=== PATIENT | female | born 1990 | race Hispanic/Latino ===

== ENCOUNTER 2016-12-23 21:00 | Inpatient (IN) | payer BC ==
[2016-12-23] MEDS ORDERED: LACTATED RINGERS 1,000 ML ONE (23:34)
[2016-12-23] MEDS ORDERED: PITOCin/NS 30 UNIT/500ML 30 UNITS/500 ML BAG IV SCH ×2 (23:45)
[2016-12-23] MEDS ORDERED: PITOCin/NS 20 UNIT/1000ML DRIP 20 UNITS/1,000 ML BAG IV SCH (23:45)
[2016-12-23] MEDS ORDERED: MINERAL OIL PO PRN (23:46)
[2016-12-23] MEDS ORDERED: STADOL IV PRN (23:46)
[2016-12-23] MEDS ORDERED: BRETHINE IVP PRN (23:46)
[2016-12-23] MEDS ORDERED: BRETHINE SUB-Q PRN (23:46)
[2016-12-23] MEDS ORDERED: ePHEDrine SULFATE IV PRN (23:46)
[2016-12-23] MEDS ORDERED: POLYCILLIN/NS 2 GM/100 ML 2 GM/100 ML BAG IV ONE (23:46)
[2016-12-23] MEDS ORDERED: XYLOCAINE 2% INFILTRATI ONE (23:46)
[2016-12-23] MEDS ORDERED: SUBLIMAZE IV PRN (23:46)
[2016-12-24] MEDS: LACTATED RINGERS 1,000 ML IV SCH ×4 (00:02→09:19)
[2016-12-24 00:11] LABS: Hematocrit 32.8 % (30.3-42.9); Hemoglobin 10.6 gm/dl (10.1-14.3)
[2016-12-24] MEDS ORDERED: ePHEDrine SULFATE ONE (01:35)
[2016-12-24] MEDS ORDERED: NARCAN 2 MG/2 ML IV PRN (02:16)
[2016-12-24] MEDS ORDERED: ePHEDrine SULFATE IV PRN (02:16)
--- NOTE | 2016-12-24 02:16 | Anesthesia Consultation ---
Anesthesia Consult and Med Hx Date of service: 12/24/16 - Airway Anesthetic Teeth Evaluation: Good ROM Head & Neck: Adequate Mental/Hyoid Distance: Adequate Mallampati Class: Class II Intubation Access Assessment: Probably Good - Pulmonary Exam CTA: Yes - Cardiac Exam Cardiac Exam: RRR - Pre-Operative Health Status ASA Pre-Surgery Classification: ASA2 Proposed Anesthetic Plan: Epidural - Pulmonary Hx Asthma: No COPD: No Hx Pneumonia: No - Cardiovascular System Hx Hypertension: No - Central Nervous System Hx Seizures: No Hx Psychiatric Problems: No - Endocrine Hx Renal Disease: No Hx End Stage Renal Disease: No Hx Hypothyroidism: No Hx Hyperthyroidism: No - Hematic Hx Anemia: Yes Hx Sickle Cell Disease: No - Other Systems Hx Alcohol Use: No
[2016-12-24] MEDS: fentaNYL-BUPIV 2 MCG/ML-0.125% 200 MCG/100 ML BAG EPIDURAL SCH ×2 (02:29→09:53)
[2016-12-24] MEDS: POLYCILLIN/NS 1 GM/50 ML 1 GM/50 ML BAG IV SCH ×2 (04:33→09:00)
--- NOTE | 2016-12-24 08:33 | History and Physical Report ---
History of Present Illness Date of examination: 12/24/16 Date of admission: 12/23/16 23:32 Chief complaint: contractions History of present illness: This is a 26 yo at 38+ weeks c/o contractions admitted for labor. She is a patient of [facility] with transfer of care at 29 weeks. Her problem list include 1. Hydronephrosis ecogenic foci resolved 2. GBS + 3. chronic anemia Past History Past Medical History: no pertinent history Past Surgical History: no surgical history Family/Genetic History: heart disease, hypertension Social history: no significant social history. denies: smoking, alcohol abuse, prescription drug abuse - Obstetrical History Expected Date of Delivery: 01/03/17 Actual Gestation: 38 Week(s) 4 Day(s) : 2 Para: 0 Hx # Term Pregnancies: 0 Number of Pregnancies: 0 Spontaneous Abortions: 0 Induced : 1 Number of Living Children: 0 Medications and Allergies Allergies Allergy/AdvReac Type Severity Reaction Status Date / Time No Known Allergies Allergy Unverified 12/23/16 21:53 Home Medications Medication Instructions Recorded Confirmed Last Taken Type Ferrous Sulfate [Feosol] 325 mg PO BID 12/24/16 12/24/16 12/23/16 History Vit-Fe Fumar-FA [ 1 tab PO QDAY 12/24/16 12/24/16 12/23/16 History Vitamin] Active Meds: Active Medications Butorphanol Tartrate (Stadol) 2 mg IV Q2H PRN PRN Reason: Pain , Severe (7-10) Last Admin: 12/24/16 00:18 Dose: 2 mg Fentanyl (Sublimaze) 100 mcg IV Q2H PRN PRN Reason: Labor Pain Lactated Ringer's (Lactated Ringers) 1,000 mls @ 125 mls/hr IV DIRECT JOSELIN Last Admin: 12/24/16 02:34 Dose: 125 mls/hr Oxytocin/Sodium Chloride (Pitocin/Ns 20 Unit/1000ml Drip) 20 units in 1,000 mls @ 125 mls/hr IV DIRECT JOSELIN Oxytocin/Sodium Chloride (Pitocin/Ns 30 Unit/500ml) 30 units in 500 mls @ 4 mls /hr IV TITR JOSELIN PRN Reason: Protocol Last Titration: 12/24/16 08:13 Dose: 16 mls/hr, 16 mls/hr Oxytocin/Sodium Chloride (Pitocin/Ns 30 Unit/500ml) 30 units in 500 mls @ 1 mls /hr IV TITR JOSELIN; 1 MILLIUNITS/MIN PRN Reason: Protocol Ampicillin Sodium (Polycillin/Ns 1 Gm/50 Ml) 1 gm in 50 mls @ 100 mls/hr IV Q4HR JOSELIN PRN Reason: Protocol Last Admin: 12/24/16 04:33 Dose: 100 mls/hr Fentanyl/Bupivacaine/Sodium Chlor (Fentanyl-Bupiv 2 Mcg/Ml-0.125%) 200 mcg in 100 mls @ 12 mls/hr EPIDURAL TITR JOSELIN PRN Reason: Protocol Last Admin: 12/24/16 02:29 Dose: 12 mls/hr Mineral Oil (Mineral Oil) 30 ml PO QHS PRN PRN Reason: Constipation Review of Systems All systems: negative Genitourinary: contractions - Vital Signs Vital signs: Vital Signs Temp Resp 98.4 F 18 12/23/16 21:48 12/23/16 21:48 Temp Pulse Resp BP Pulse Ox 98.8 F 88 18 135/68 95 12/24/16 07:20 12/24/16 08:25 12/24/16 07:20 12/24/16 08:19 12/24/16 08:25 - Physical Exam Breasts: Positive: normal Cardiovascular: Regular rate, Normal S1 Lungs: Positive: Clear to auscultation, Normal air movement Abdomen: Positive: normal appearance, soft, normal bowel sounds. Negative: distention, tenderness Genitourinary (Female): Positive: normal external genitalia, normal perenium Vulva: both: normal Uterus: Positive: normal size, normal contour Anus/Rectum: Positive: normal perianal skin Extremities: Positive: normal Deep Tendon Reflex Grade: Normal +2 - Obstetrical FHR: category 1 Uterine Contraction Monitor Mode: External Cervical Dilatation: 6 Uterine Contraction Pattern: Regular Uterine Tone Measurement Phase: Contraction Uterine Contraction Intensity: Moderate Results Result Diagrams: 12/24/16 01:40 All other labs normal. Assessment and Plan A/P IUP 38 + weeks GBS + amp initiated active labor expect vaginal delivery
[2016-12-24] MEDS ORDERED: XYLOCAINE 2% INFILTRATI ONE (11:09)
[2016-12-24] MEDS ORDERED: CYTOTEC ONE (11:12)
[2016-12-24] MEDS ORDERED: LANSINOH TP PRN (12:33)
[2016-12-24] MEDS ORDERED: TYLENOL PO PRN (12:33)
[2016-12-24] MEDS ORDERED: PHENERGAN PO PRN (12:33)
[2016-12-24] MEDS ORDERED: NORCO 5/325 PO PRN (12:33)
[2016-12-24] MEDS ORDERED: TORADOL IV PRN (12:33)
[2016-12-24] MEDS ORDERED: DULCOLAX PR PRN (12:33)
[2016-12-24] MEDS ORDERED: MILK OF MAGNESIA PO PRN (12:33)
[2016-12-24] MEDS ORDERED: PHENERGAN PR PRN (12:33)
[2016-12-24] MEDS ORDERED: TUCKS PAD TP PRN (12:33)
[2016-12-24] MEDS ORDERED: ZOFRAN IV PRN (12:33)
[2016-12-24] MEDS ORDERED: BENADRYL PO PRN (12:33)
[2016-12-24] MEDS ORDERED: SODIUM CHLORIDE FLUSH SYRINGE 10 ML IV NR (13:00)
--- NOTE | 2016-12-24 13:00 | Procedure Note ---
OB Delivery Note - Delivery Date of Delivery: 12/24/16 Surgeon: ELVIS BUSTOS Estimated blood loss: 500cc - Vaginal Delivery presentation: vertex Delivery position: OA Delivery induction: none Delivery augmentation: pitocin Delivery monitor: external FHT, external uterine Route of delivery: Delivery placenta: spontaneous Delivery cord: nuchal cord, 3 umbilical vessels Episiotomy: none Delivery laceration: 2nd degree, vaginal side wall (left) Delivery repair: vicryl Delivery comments: Patient was noted to be c/c/ and pushing and delivered a viable female at 1109 weighting 8 pounds 4 ounces Apgars 8 and 9. The baby was placed on mom chest and cord reduced from nuchal cord. The cord was cut and clamped and placentat delivered intact with 3 vessel cord at 1111. A 2nd degree lac noted and repaired in normal way with 2-0vicryl. a 3-0 vicryl repaired with running stitch on side wall. EBL 500cc. patient tolerated procedure well. - Infant A at 1 minute: 8 at 5 minutes: 9 Infant Gender: Female
[2016-12-24] MEDS: MOTRIN PO SCH ×2 (13:48→18:13)
[2016-12-24] MEDS: PRENATAL VITAMIN PO SCH (13:49)
[2016-12-24] MEDS: SENOKOT S PO SCH (21:53)
[2016-12-24] MEDS: COLACE PO SCH (21:54)
[2016-12-24] MEDS: PERCOCET 5/325 PO PRN (23:44)
[2016-12-25 00:58] LABS: Hematocrit 25.7 % (30.3-42.9); Hemoglobin 8.4 gm/dl (10.1-14.3)
[2016-12-25] MEDS: MOTRIN PO SCH ×4 (01:09→18:32)
[2016-12-25] MEDS: PERCOCET 5/325 PO PRN ×2 (06:04→18:35)
--- NOTE | 2016-12-25 06:38 | Progress Note ---
Assessment and Plan A/P PPD#1 s/p Doing well bleeding decreased pain well controlled continue routine PP desires minipill for control h/h 10.6---8.4 iron tabs bid A+ no rhogam indicated continue routine PP order D/C home tomorrow ( GBS+ -gely 48 hr observation) Subjective - Subjective Date of service: 12/25/16 Principal diagnosis: s/p Interval history: This is a 26 yo at 38+ weeks c/o contractions admitted for labor. She is a patient of [facility] with transfer of care at 29 weeks. Her problem list include 1. Hydronephrosis ecogenic foci resolved 2. GBS + 3. chronic anemia Patient reports: appetite normal, voiding normally, pain well controlled, flatus , ambulating normally [place]: doing well, nursing well Objective - Vital Signs Latest vital signs: Vital Signs Temp Pulse Pulse Resp BP BP Pulse Ox 12/25/16 06:04 20 12/25/16 00:00 99 F 65 16 121/66 12/24/16 23:44 20 12/24/16 20:00 98.7 F 74 18 108/55 12/24/16 16:50 98.8 F 84 18 117/62 12/24/16 13:45 98.1 F 86 20 110/70 12/24/16 13:18 90 111/75 12/24/16 13:03 100 H 116/81 12/24/16 12:48 99 H 115/78 12/24/16 12:34 89 113/59 12/24/16 12:18 89 118/58 12/24/16 12:14 91 H 97 12/24/16 12:08 79 95 12/24/16 12:03 88 123/59 12/24/16 11:33 95 H 127/62 12/24/16 11:18 88 140/60 12/24/16 11:13 99.0 F 96 H 18 132/57 96 12/24/16 11:11 88 132/57 96 12/24/16 11:04 82 122/63 12/24/16 10:55 89 99 12/24/16 10:50 90 98 12/24/16 10:48 72 122/59 12/24/16 10:45 77 99 12/24/16 10:40 74 98 07/14/17 10:35 81 97 14/17 10:34 77 122/59 0714/17 10:30 72 98 0714/17 10:25 79 98 14/17 10:20 81 97 14/17 10:19 76 106/56 14/17 10:15 85 97 14/17 10:10 78 96 14/17 10:05 80 114/55 98 14/17 10:00 89 97 14/17 09:55 75 97 14/17 09:50 78 97 14/17 09:49 83 101/52 14/17 09:45 74 99 14/17 09:40 77 110/56 98 14/17 09:35 80 98 14/17 09:33 76 92/45 14/17 09:30 87 96 14/17 09:25 81 97 14/17 09:22 98.5 F 82 18 97/53 96 17 09:20 84 95 1417 09:18 78 97/53 14/17 09:15 86 95 1417 09:10 80 96 14/17 09:05 82 95 12/24/17 09:03 73 97/55 17 09:00 86 94 1417 08:58 80 94 14/17 08:55 84 95 12/24/17 08:50 76 95 14/17 08:49 89 94 14/17 08:48 85 123/63 14/17 08:45 80 95 1417 08:40 86 95 14/17 08:35 91 H 95 14/17 08:33 78 94 14/17 08:30 85 94 14/17 08:27 86 94 14/17 08:25 88 95 14/17 08:20 84 96 14/17 08:19 87 135/68 14/17 08:15 87 96 1417 08:10 84 96 14/17 08:05 79 98 14/17 08:04 75 126/71 14/17 08:00 83 96 14/17 07:55 90 97 12/24/16 07:50 83 97 12/24/16 07:49 76 123/66 12/24/16 07:45 81 97 12/24/16 07:40 83 97 12/24/16 07:35 92 H 97 12/24/16 07:33 85 124/73 12/24/16 07:30 80 98 12/24/16 07:25 80 98 12/24/16 07:20 98.8 F 83 83 18 131/81 99 12/24/16 07:19 78 131/81 12/24/16 07:15 80 99 12/24/16 07:10 88 100 12/24/16 07:05 81 99 12/24/16 07:04 84 119/79 12/24/16 07:00 77 99 12/24/16 06:55 74 100 12/24/16 06:50 101 H 96/59 98 12/24/16 06:45 70 99 12/24/16 06:40 71 99 12/24/16 06:35 73 99 Intake and Output 12/24/16 12/24/16 12/25/16 14:59 22:59 06:59 Intake Total 1000 360 Output Total 2200 1100 Balance -1200 -740 Intake: IV 1000 Lactated Ringers 1,000 ml 1000 @ 125 mls/hr IV DIRECT JOSELIN Rx#:[id number] Oral 360 Output: Urine 2200 1100 Indwelling Catheter 1100 Uretheral ([place]div[place]) 1100 Void 1100 Other: Total, Intake Amount 240 Total, Output Amount 1100 600 Estimated Blood Loss 500 - Exam Breasts: Present: normal Cardiovascular: Present: Regular rate, Normal S1 Lungs: Present: Clear to auscultation, Normal air movement Abdomen: Present: normal appearance, soft, normal bowel sounds. Absent: distention, tenderness, guarding Vulva: both: normal Uterus: Present: normal, firm, fundal height below umbilicus (2cm below ). Absent: bogginess, tenderness Extremities: Present: normal Deep Tendon Reflex Grade: Normal +2 - Labs Labs: Abnormal lab results 12/25/16 Range/Units 00:13 Hgb 8.4 L (10.1-14.3) gm/dl Hct 25.7 L D (30.3-42.9) %
--- NOTE | 2016-12-25 06:40 | Discharge Summary ---
Providers - Providers Date of Admission: 12/23/16 23:32 Date of discharge: 12/26/16 Attending physician: ELVIS BUSTOS MD Primary care physician: ELVIS BUSTOS MD Hospitalization Reason for admission: active labor Delivery: Episiotomy: none Laceration: 2nd degree Incision: normal, dry, intact Other procedures: none complications: none Discharge diagnosis: IUP at term delivered baby: female Condition at discharge: Good Disposition: DC-01 TO HOME OR SELFCARE Plan - Discharge Medications Prescriptions: Ferrous Sulfate [Feosol 325 MG tab] 325 mg PO BID #30 tablet Ibuprofen [Motrin] 600 mg PO Q8H PRN #30 tablet PRN Reason: Pain oxyCODONE /ACETAMINOPHEN [Percocet 5/325] 1 tab PO Q6HR PRN #30 tablet PRN Reason: Pain - Provider Discharge Summary Additional instructions: [] Smoking cessation referral if applicable(refer to patient education folder for contact #) [] Refer to [facility]'s [facility] Booklet Call your doctor immediately for: * Fever > 100.5 * Heavy vaginal bleeding ( >1 pad per hour) * Severe persistent headache * Shortness of breath * Reddened, hot, painful area to leg or breast * Drainage or odor from incision. * Keep incision clean and dry at all times and follow doctor's instructions regarding bathing/showering - Follow up plan Follow up: ELVIS BUSTOS MD [Primary Care Provider] - 7 Days
--- NOTE | 2016-12-25 10:22 | Progress Note ---
Subjective Date of service: 12/25/16 Principal diagnosis: s/p Interval history: Epidural is out. No anesthetic related complaints Objective - Constitutional Vitals: Vital Signs - 12hr 12/24/16 12/25/16 12/25/16 23:44 00:00 06:04 Temperature 99 F Pulse Rate [ 65 From Monitor] Respiratory 20 16 20 Rate Blood Pressure 121/66 [Right Arm] 12/25/16 08:41 Temperature 98.2 F Pulse Rate [ 66 From Monitor] Respiratory 18 Rate Blood Pressure 108/69 [Right Arm] - Labs CBC & Chem 7: 12/25/16 00:13 Labs: Abnormal lab results 12/25/16 Range/Units 00:13 Hgb 8.4 L (10.1-14.3) gm/dl Hct 25.7 L D (30.3-42.9) %
[2016-12-25] MEDS ORDERED: BOOSTRIX IM ONE (12:33)
[2016-12-25] MEDS ORDERED: M-M-R II VACCINE SUB-Q ONE (12:33)
[2016-12-25] MEDS: PRENATAL VITAMIN PO SCH (12:34)
[2016-12-25] MEDS: COLACE PO SCH (12:34)
[2016-12-26] MEDS: COLACE PO SCH ×2 (00:18→11:40)
[2016-12-26] MEDS: MOTRIN PO SCH ×4 (00:18→20:57)
[2016-12-26] MEDS: SENOKOT S PO SCH (00:19)
[2016-12-26] MEDS: PERCOCET 5/325 PO PRN ×2 (02:02→20:58)
[2016-12-26] MEDS: PRENATAL VITAMIN PO SCH (11:40)
[2016-12-26 18:17] VITALS: BP 143/74
== END 2016-12-26 21:20 | disposition home or self-care (01) | DRG 774 ==
LOC: TRG 21:00 → LD 23:32 → OB 12-24 13:45
PROVIDERS: ADMIT Obstetrics & Gynecology; ATTEND Obstetrics & Gynecology
PROC: 10E0XZZ Delivery of Products of Conception, External Approach (ICD-10-PCS; principal; 2016-12-24)
PROC: 0KQM0ZZ Repair Perineum Muscle, Open Approach (ICD-10-PCS; 2016-12-24)
PROC: 3E0234Z Introduction of Serum, Toxoid and Vaccine into Muscle, Percutaneous Approach (ICD-10-PCS; 2016-12-25)
DX: O99.824 Streptococcus B carrier state complicating childbirth (principal); O98.82 Other maternal infectious and parasitic diseases complicating childbirth; N13.30 Unspecified hydronephrosis; O99.02 Anemia complicating childbirth; D64.9 Anemia, unspecified; Z3A.38 38 weeks gestation of pregnancy; Z37.0 Single live birth; Z23 Encounter for immunization; O69.81X0 Labor and delivery complicated by cord around neck, without compression, not applicable or unspecified; O70.1 Second degree perineal laceration during delivery
CPT/HCPCS: 36415; 85014; 85018; 85027; 85049; 86592; 86850; 86900; 86901; 99211; G0463; J0290; J0595; J2590; J7120

== ENCOUNTER 2020-01-09 23:38 | Emergency (ER) | payer BC ==
--- NOTE | 2020-01-10 00:02 | Emergency Department Report ---
ED General Adult HPI - General Chief complaint: Dyspnea/Respdistress Stated complaint: SHORTNESS OF BREATH PUI?: Yes Time Seen by Provider: 01/09/20 23:56 Source: patient Mode of arrival: Ambulatory Limitations: No Limitations - History of Present Illness Initial comments: Patient is a 29-year-old female that presents emergency room with complaints of upper respiratory infection symptoms and shortness of breath. Patient states that approximately 9 days ago, the patient had fever that lasted for 3 days. Patient states her fever was 100.5-100.9. Patient states after 3 days her fever resolved. Patient states she had diarrhea for 1 day. Patient states 6 days ago she tested for COVID-19 and it was negative. Patient states that her shortness of breath started 2 to 3 days ago. Patient states that her shortness of breath is better with rest and worse with exertion. Patient complains of loss of smell and a mild cough. Patient states her cough has resolved. Patient states her loss of smell has resolved. Patient states she also had a runny nose which is resolved. Patient denies nausea vomiting. Patient denies chest pain. Patient states her cough was dry. Patient states her last menstrual period was 1 week a go. Patient denies recent fever. Patient states she came to the emergency room to be evaluated for pneumonia. -: Sudden Consistency: constant Improves with: rest Worsens with: movement Associated Symptoms: cough, fever/chills, malaise, shortness of breath, other. denies: confusion, chest pain, diaphoresis, headaches, loss of appetite, nausea/vomiting, rash, seizure, syncope, weakness Treatments Prior to Arrival: other (Tylenol) - Related Data Home Medications Medication Instructions Recorded Confirmed Last Taken Ferrous Sulfate [Feosol] 325 mg PO BID 12/24/16 12/24/16 12/23/16 Vit-Fe Fumar-FA [ 1 tab PO QDAY 12/24/16 12/24/16 12/23/16 Vitamin] Previous Rx's Medication Instructions Recorded Last Taken Type Ferrous Sulfate [Feosol 325 MG tab] 325 mg PO BID #30 tablet 12/25/16 Unknown Rx Ibuprofen [Motrin] 600 mg PO Q8H PRN #30 tablet 12/25/16 Unknown Rx oxyCODONE /ACETAMINOPHEN [Percocet 1 tab PO Q6HR PRN #30 tablet 12/25/16 Unknown Rx 5/325] Azithromycin [Zithromax Tri-Deon] 500 mg PO DAILY 3 Days #3 tablet 01/10/20 Unknown Rx dexAMETHasone [Taperdex] 1.5 mg PO DAILY 7 Days #1 tab.ds.pk 01/10/20 Unknown Rx Allergies Allergy/AdvReac Type Severity Reaction Status Date / Time No Known Allergies Allergy Unverified 12/23/16 21:53 ED Review of Systems ROS: Stated complaint: SHORTNESS OF BREATH Other details as noted in HPI Constitutional: chills, fever, malaise Eyes: denies: eye pain, eye discharge, vision change ENT: denies: ear pain, throat pain Respiratory: cough, shortness of breath, SOB with exertion. denies: wheezing Cardiovascular: denies: chest pain, palpitations Endocrine: no symptoms reported Gastrointestinal: diarrhea. denies: abdominal pain, nausea, vomiting Genitourinary: denies: urgency, dysuria, discharge Musculoskeletal: denies: back pain, joint swelling, arthralgia Skin: denies: rash, lesions Neurological: denies: headache, weakness, paresthesias Psychiatric: denies: anxiety, depression Hematological/Lymphatic: denies: easy bleeding, easy bruising ED Past Medical Hx - Past Medical History Previous Medical History?: No Hx Hypertension: No Hx Congestive Heart Failure: No Hx Diabetes: No Hx Deep Vein Thrombosis: No Hx Renal Disease: No Hx Sickle Cell Disease: No Hx Seizures: No Hx Asthma: No Hx COPD: No Hx HIV: No - Surgical History Past Surgical History?: Yes - Family History Family history: no significant - Social History Smoking Status: Never Smoker Substance Use Type: None - Medications Home Medications: Home Medications Medication Instructions Recorded Confirmed Last Taken Type Ferrous Sulfate [Feosol] 325 mg PO BID 12/24/16 12/24/16 12/23/16 History Vit-Fe Fumar-FA [ 1 tab PO QDAY 12/24/16 12/24/16 12/23/16 History Vitamin] Ferrous Sulfate [Feosol 325 MG tab] 325 mg PO BID #30 tablet 12/25/16 Unknown Rx Ibuprofen [Motrin] 600 mg PO Q8H PRN #30 tablet 12/25/16 Unknown Rx oxyCODONE /ACETAMINOPHEN [Percocet 1 tab PO Q6HR PRN #30 tablet 12/25/16 Unknown Rx 5/325] Azithromycin [Zithromax Tri-Deon] 500 mg PO DAILY 3 Days #3 tablet 01/10/20 Unknown Rx dexAMETHasone [Taperdex] 1.5 mg PO DAILY 7 Days #1 tab.ds.pk 01/10/20 Unknown Rx ED Physical Exam - General Limitations: No Limitations General appearance: alert, in no apparent distress - Head Head exam: Present: atraumatic, normocephalic - Eye Eye exam: Present: normal appearance - ENT ENT exam: Present: mucous membranes moist - Neck Neck exam: Present: normal inspection - Respiratory Respiratory exam: Present: normal lung sounds bilaterally. Absent: respiratory distress, wheezes, rales - Cardiovascular Cardiovascular Exam: Present: regular rate, normal rhythm. Absent: systolic murmur, diastolic murmur, rubs, gallop - GI/Abdominal GI/Abdominal exam: Present: soft, normal bowel sounds - Extremities Exam Extremities exam: Present: normal inspection - Back Exam Back exam: Present: normal inspection - Neurological Exam Neurological exam: Present: alert, oriented X3 - Psychiatric Psychiatric exam: Present: normal affect, normal mood - Skin Skin exam: Present: warm, dry, intact, normal color. Absent: rash ED Course Vital Signs 01/10/20 01:40 Temperature 98.7 F Pulse Rate 80 Respiratory 16 Rate Blood Pressure 121/68 O2 Sat by Pulse 97 Oximetry - Reevaluation(s) Reevaluation #1: I discussed all results and clinical findings with patient. I discussed plan of care with patient. Patient agrees with plan of care. Patient is stable for discharge. Patient will be discharged home. Patient given discharge instructions. Patient voiced understanding of discharge instructions. 01/10/20 01:51 ED Medical Decision Making - Lab Data Result diagrams: 01/10/20 00:08 01/10/20 00:08 - Radiology Data Radiology results: report reviewed CHEST 2 VIEWS INDICATION / CLINICAL INFORMATION: cough. COMPARISON: None available. FINDINGS: SUPPORT DEVICES: None. HEART / MEDIASTINUM: No significant abnormality. LUNGS / PLEURA: No significant pulmonary or pleural abnormality. No pneumothorax. ADDITIONAL FINDINGS: No significant additional findings. IMPRESSION: 1. No acute abnormality of the chest. - Medical Decision Making Patient is a 29-year-old female that presents emergency room with complaints of upper respiratory symptoms. Patient had a chest x-ray which was negative. Patient's labs are unremarkable. Patient already had a negative COVID test. Patient does not require quarantining since her culture was negative. I will have the patient repeat her COVID-19 test just to be on the safe side. Patient will be given Zithromax and a TaperDex. - Differential Diagnosis COVID, URI, fatigue, fever, cough,sob. pna Critical care attestation.: If time is entered above; I have spent that time in minutes in the direct care of this critically ill patient, excluding procedure time. ED Disposition Clinical Impression: Suspected COVID-19 virus infection, SOB (shortness of breath), Cough URI (upper respiratory infection) Qualifiers: URI type: unspecified viral URI Qualified Code(s): J06.9 - Acute upper respiratory infection, unspecified Disposition: TO HOME OR SELFCARE Is pt being admited?: No Does the pt Need Aspirin: No Condition: Stable Instructions: COVID-19, Upper Respiratory Infection (ED) Additional Instructions: Patient to follow-up with primary care in 2 to 3 days. Patient to repeat COVID testing if fever returns. Patient to rest. Patient to increase water. Patient to take Tylenol as needed for pain. Patient to take meds as directed. Patient to return to the ER if condition worsens, changes or new symptoms arise. Prescriptions: dexAMETHasone [Taperdex] 1.5 mg PO DAILY 7 Days #1 tab.ds.pk Azithromycin [Zithromax Tri-Deon] 500 mg PO DAILY 3 Days #3 tablet Referrals: PRIMARY CARE, [Primary Care Provider] - 2-3 Days Time of Disposition: 01:50
[2020-01-10 00:47] LABS: Hematocrit 40.9 % (30.3-42.9); Hemoglobin 13.8 gm/dl (10.1-14.3); Mean Corpuscular HGB Conc 34 % (30-34); Mean Corpuscular Volume 94 fl (79-97); Platelet Count 223 K/mm3 (140-440); Red Blood Count 4.34 M/mm3 (3.65-5.03); Red Cell Distribution Width 12.4 % (13.2-15.2)
--- NOTE | 2020-01-10 01:04 | XRay Report ---
CHEST 2 VIEWS INDICATION / CLINICAL INFORMATION: cough. COMPARISON: None available. FINDINGS: SUPPORT DEVICES: None. HEART / MEDIASTINUM: No significant abnormality. LUNGS / PLEURA: No significant pulmonary or pleural abnormality. No pneumothorax. ADDITIONAL FINDINGS: No significant additional findings. IMPRESSION: 1. No acute abnormality of the chest. Signer Name: Pillo Banuelos MD Signed: 01/10/2020 1:00 AM Workstation Name: [id number]
[2020-01-10 01:07] LABS: Alanine Aminotransferase 13 units/L (7-56); Albumin 4.7 g/dL (3.9-5); BUN/Creatinine Ratio 15; Blood Urea Nitrogen 12 mg/dL (7-17); Calcium 9.8 mg/dL (8.4-10.2); Hemolysis Index 5
[2020-01-10 01:43] VITALS: BP 121/68
== END 2020-01-10 02:11 | disposition home or self-care (01) ==
LOC: ED 23:38
DX: J06.9 Acute upper respiratory infection, unspecified (principal); Z20.828 Contact with and (suspected) exposure to other viral communicable diseases; R06.02 Shortness of breath; R05 Cough; Z79.1 Long term (current) use of non-steroidal anti-inflammatories (NSAID); Z79.2 Long term (current) use of antibiotics; Z79.899 Other long term (current) drug therapy
CPT/HCPCS: 36415; 71046; 80053; 84703; 85027

== ENCOUNTER 2020-11-23 04:31 | Emergency (ER) | payer BC ==
[2020-11-23] MEDS ORDERED: HYDROmorphone 1 MG/1 ML INJ IV ONE ×2 (04:38→06:36)
[2020-11-23] MEDS ORDERED: SODIUM CHLORIDE 0.9% 1000 ML 1,000 ML IV ONE (04:38)
[2020-11-23] MEDS ORDERED: ONDANSETRON 4 MG/2 ML INJ IV ONE ×2 (04:38→06:36)
--- NOTE | 2020-11-23 04:39 | Emergency Department Report ---
ED Abdominal Pain HPI - General Chief Complaint: Abdominal Pain Stated Complaint: PELVIC PAIN/VAGINAL BLEEDING X5WKS PUI?: No Time Seen by Provider: 11/23/20 04:36 Source: patient, RN/MD, RN notes reviewed, old records reviewed Mode of arrival: Ambulatory Limitations: No Limitations - History of Present Illness Initial Comments: Patient is a 30-year-old female that presents emergency room with complaints of right lower quadrant abdominal pain. Patient states she is also been having abnormal cycles. Patient states she came off control about 5 weeks ago and she has been bleeding since. Patient states that she took a test today it came up positive. Patient states the pain is severe 10 out of 10. Patient states the pain improved with ibuprofen. Patient denies chest pain. Patient denies nausea vomiting. Patient denies shortness of breath. Patient denies recent travel. Patient denies recent international travel. Patient denies exposure to the novel coronavirus. Patient denies sick contacts. Patient denies fever and chills. Patient denies cough. Patient denies diarrhea. Patient denies coming in contact with anybody with symptoms of the novel coronavirus. Patient's blood type is A positive. Patient is a G2, MD Complaint: abdominal pain -: Sudden Location: RLQ Radiation: none Migration to: no migration Severity: severe Severity scale (0 -10): 10 Quality: stabbing Improves With: medication (Ibuprofen), rest Worsens With: movement Associated Symptoms: denies other symptoms - Related Data Home Medications Medication Instructions Recorded Confirmed Last Taken Ferrous Sulfate [Feosol] 325 mg PO BID 12/24/16 12/24/16 12/23/16 Previous Rx's Medication Instructions Recorded Last Taken Type Ferrous Sulfate [Feosol 325 MG tab] 325 mg PO BID #30 tablet 12/25/16 Unknown Rx Ibuprofen [Motrin] 600 mg PO Q8H PRN #30 tablet 12/25/16 Unknown Rx Azithromycin [Zithromax Tri-Deon] 500 mg PO DAILY 3 Days #3 tablet 01/10/20 Unknown Rx dexAMETHasone [Taperdex] 1.5 mg PO DAILY 7 Days #1 tab.ds.pk 01/10/20 Unknown Rx Ondansetron [Zofran Odt] 4 mg PO Q6HR PRN #30 tab.rapdis 11/23/20 Unknown Rx Vit-Fe Fumar-FA [ 1 tab PO QDAY 30 Days #30 tab 11/23/20 Unknown Rx Vitamin] oxyCODONE /ACETAMINOPHEN [Percocet 1 tab PO Q6HR PRN #15 tablet 11/23/20 Unknown Rx 5/325 mg] Allergies Allergy/AdvReac Type Severity Reaction Status Date / Time No Known Allergies Allergy Verified 11/23/20 04:52 ED Review of Systems ROS: Stated complaint: PELVIC PAIN/VAGINAL BLEEDING X5WKS Other details as noted in HPI Constitutional: denies: chills, fever Eyes: denies: eye pain, eye discharge, vision change ENT: denies: ear pain, throat pain Respiratory: denies: cough, shortness of breath, wheezing Cardiovascular: denies: chest pain, palpitations Endocrine: no symptoms reported Gastrointestinal: as per HPI, abdominal pain. denies: nausea, diarrhea Genitourinary: denies: urgency, dysuria, discharge Musculoskeletal: denies: back pain, joint swelling, arthralgia Skin: denies: rash, lesions Neurological: denies: headache, weakness, paresthesias Psychiatric: denies: anxiety, depression Hematological/Lymphatic: denies: easy bleeding, easy bruising ED Past Medical Hx - Past Medical History Previous Medical History?: No Hx Hypertension: No Hx Congestive Heart Failure: No Hx Diabetes: No Hx Deep Vein Thrombosis: No Hx Renal Disease: No Hx Sickle Cell Disease: No Hx Seizures: No Hx Asthma: No Hx COPD: No Hx HIV: No - Surgical History Past Surgical History?: No - Family History Family history: no significant - Social History Smoking Status: Never Smoker Substance Use Type: None - Medications Home Medications: Home Medications Medication Instructions Recorded Confirmed Last Taken Type Ferrous Sulfate [Feosol] 325 mg PO BID 12/24/16 12/24/16 12/23/16 History Ferrous Sulfate [Feosol 325 MG tab] 325 mg PO BID #30 tablet 12/25/16 Unknown Rx Ibuprofen [Motrin] 600 mg PO Q8H PRN #30 tablet 12/25/16 Unknown Rx Azithromycin [Zithromax Tri-Deon] 500 mg PO DAILY 3 Days #3 tablet 01/10/20 Unk nown Rx dexAMETHasone [Taperdex] 1.5 mg PO DAILY 7 Days #1 tab.ds.pk 01/10/20 Unknown Rx Ondansetron [Zofran Odt] 4 mg PO Q6HR PRN #30 tab.rapdis 11/23/20 Unknown Rx Vit-Fe Fumar-FA [ 1 tab PO QDAY 30 Days #30 tab 11/23/20 Unknown Rx Vitamin] oxyCODONE /ACETAMINOPHEN [Percocet 1 tab PO Q6HR PRN #15 tablet 11/23/20 Unknown Rx 5/325 mg] ED Physical Exam - General Limitations: No Limitations General appearance: alert, in no apparent distress - Head Head exam: Present: atraumatic, normocephalic - Eye Eye exam: Present: normal appearance - ENT ENT exam: Present: mucous membranes moist - Neck Neck exam: Present: normal inspection - Respiratory Respiratory exam: Present: normal lung sounds bilaterally. Absent: respiratory distress - Cardiovascular Cardiovascular Exam: Present: regular rate, normal rhythm. Absent: systolic mu rmur, diastolic murmur, rubs, gallop - GI/Abdominal GI/Abdominal exam: Present: soft, normal bowel sounds - Extremities Exam Extremities exam: Present: normal inspection - Back Exam Back exam: Present: normal inspection - Neurological Exam Neurological exam: Present: alert, oriented X3 - Psychiatric Psychiatric exam: Present: normal affect, normal mood - Skin Skin exam: Present: warm, dry, intact, normal color. Absent: rash ED Course Vital Signs 11/23/20 11/23/20 11/23/20 04:49 04:55 05:00 Temperature 98.0 F Pulse Rate 93 H 89 Respiratory 18 23 18 Rate Blood Pressure 145/99 135/76 [Left] O2 Sat by Pulse 100 100 Oximetry 11/23/20 11/23/20 11/23/20 05:19 06:00 07:07 Temperature Pulse Rate 73 Respiratory 18 19 18 Rate Blood Pressure 120/79 [Left] O2 Sat by Pulse 100 Oximetry 11/23/20 07:15 Temperature Pulse Rate Respiratory 18 Rate Blood Pressure [Left] O2 Sat by Pulse Oximetry - Reevaluation(s) Reevaluation #1: Patient states her pain is better. Patient will have an ultrasound done. 11/23/20 05:43 Reevaluation #2: I discussed all results and clinical findings with patient. I discussed plan of care with patient. Patient agrees with plan of care. Patient is stable for discharge. Patient will be discharged home. Patient given discharge instructions. Patient voiced understanding of discharge instructions. 11/23/20 06:43 ED Medical Decision Making - Lab Data Result diagrams: 11/23/20 04:54 11/23/20 04:54 - Radiology Data Radiology results: report reviewed, image reviewed EXAMINATION: Obstetrical ultrasound, 11/23/2020 CLINICAL INFORMATION: Abdominal pain in early . Vaginal bleeding. COMPARISON: None. FINDINGS: The uterus is within normal limits in size measuring 7.9 x 3.5 x 5.1 cm. The endometrial complex measures a maximum of 3 mm. No intrauterine is visualized. The bilateral adnexal regions appear within normal limits. Doppler flow is demonstrated to both adnexal regions. There is a 1.3 cm right adnexal cyst. There is a small amount of free pelvic fluid. IMPRESSION: 1. No evidence of intrauterine . Diagnostic considerations would include failed or failing , too early to visualize or less likely ectopic pre gnancy. Please correlate with patient's clinical circumstances. - Medical Decision Making Patient is a 30-year-old female who presents emergency room with complaints of abdominal pain and positive home . Patient also complains of nausea vomiting. Patient had labs done which were essentially unremarkable except for showing a positive hCG. Patient had an ultrasound which shows ovarian cyst and a miscarriage and empty uterus. No signs of ectopic . Patient given 2 doses of Dilaudid and Zofran. Patient is stable for discharge. Patient not require inpatient services. Patient instructed to follow-up with [facility]. - Differential Diagnosis Ectopic , abdominal pain, ovarian cyst, Critical care attestation.: If time is entered above; I have spent that time in minutes in the direct care of this critically ill patient, excluding procedure time. ED Disposition Clinical Impression: Miscarriage Abdominal pain Qualifiers: Abdominal location: right lower quadrant Qualified Code(s): R10.31 - Right lower quadrant pain Pelvic pain affecting Qualifiers: Trimester: first trimester Qualified Code(s): O26.891 - Other specified related conditions, first trimester Disposition: DC-01 TO HOME OR SELFCARE Is pt being admited?: No Does the pt Need Aspirin: No Condition: Stable Instructions: Miscarriage, [id number], Abdominal Pain During , [id number], Pelvic Pain, Female, Abdominal Pain (ED) Additional Instructions: Patient to follow-up with primary care in 2 to 3 days. Patient to follow-up with [facility] in 2 to 3 days. Patient to rest. Patient to increase water. Patient to avoid strenuous exercise or heavy lifting until cleared by [facility]. Patient to take Tylenol or ibuprofen as needed for pain. Patient to take meds as directed. Patient to return to the ER if condition worsens, changes or new symptoms arise. Prescriptions: oxyCODONE /ACETAMINOPHEN [Percocet 5/325 mg] 1 tab PO Q6HR PRN #15 tablet PRN Reason: Pain Vit-Fe Fumar-FA [ Vitamin] 1 tab PO QDAY 30 Days #30 tab Ondansetron [Zofran Odt] 4 mg PO Q6HR PRN #30 tab.rapdis PRN Reason: Nausea And Vomiting Referrals: PRIMARY CARE, [Primary Care Provider] - 2-3 Days Time of Disposition: 07:02
[2020-11-23 05:07] LABS: Basophils # (Auto) 0.1 K/mm3 (0.0-0.1); Eosinophils # (Auto) 0.2 K/mm3 (0.0-0.4); Eosinophils % (Auto) 2.2 % (0.0-4.3); Hematocrit 34.5 % (30.3-42.9); Hemoglobin 12.1 gm/dl (10.1-14.3); Lymphocytes # (Auto) 2.3 K/mm3 (1.2-5.4); Lymphocytes % (Auto) 28.5 % (13.4-35.0); Mean Corpuscular HGB Conc 35 % (30-34); Mean Corpuscular Volume 93 fl (79-97); Monocytes # (Auto) 0.6 K/mm3 (0.0-0.8); Monocytes % (Auto) 7.5 % (0.0-7.3); Platelet Count 179 K/mm3 (140-440); Red Cell Distribution Width 12.5 % (13.2-15.2)
[2020-11-23 05:17] LABS: INR 0.94 (0.87-1.13)
[2020-11-23 05:25] LABS: Blood Urea Nitrogen 5 mg/dL (7-17); Calcium 8.9 mg/dL (8.4-10.2); Hemolysis Index 2
[2020-11-23 05:26] LABS: BUN/Creatinine Ratio 8
[2020-11-23 06:22] LABS: Bilirubin,Urine NEG (Negative); Blood,Urine LG (Negative); Color,Urine Yellow (Yellow); Mucus,Urine FEW /HPF; Protein,Urine <15 mg/dL mg/dL (Negative); Urobilinogen,Urine < 2.0 mg/dL (<2.0)
--- NOTE | 2020-11-23 06:46 | Ultrasound Report ---
EXAMINATION: Obstetrical ultrasound, 11/23/2020 CLINICAL INFORMATION: Abdominal pain in early . Vaginal bleeding. COMPARISON: None. FINDINGS: The uterus is within normal limits in size measuring 7.9 x 3.5 x 5.1 cm. The endometrial complex tima ures a maximum of 3 mm. No intrauterine is visualized. The bilateral adnexal regions appear within normal limits. Doppler flow is demonstrated to both adnex al regions. There is a 1.3 cm right adnexal cyst. There is a small amount of free pelvic fluid. IMPRESSION: 1. No evidence of intrauterine . Diagnostic considerations would include failed or failing , too early to visualize or less likely ectopic . Please correlate with p beth's clinical circumstances. Signer Name: Magdalena Aguilera MD Signed: 11/23/2020 6:42 AM Workstation Name: [id number]
[2020-11-23 07:15] VITALS: BP 120/79
== END 2020-11-23 07:15 | disposition home or self-care (01) ==
LOC: ED 04:31
DX: O03.9 Complete or unspecified spontaneous abortion without complication (principal); O26.891 Other specified pregnancy related conditions, first trimester; R10.31 Right lower quadrant pain; Z79.899 Other long term (current) drug therapy; Z3A.01 Less than 8 weeks gestation of pregnancy
CPT/HCPCS: 36415; 76801; 80048; 81001; 84702; 84703; 85025; 85610; 96361; 96374; 96375; 96376; 99284; J1170; J2405; J7030

== ENCOUNTER 2020-12-12 01:10 | Day surgery (SDC) | payer BC ==
--- NOTE | 2020-12-12 01:19 | Emergency Department Report ---
ED HPI - General Chief complaint: Abdominal Pain Stated complaint: ABD PAIN Time Seen by Provider: 12/12/20 01:14 Source: patient Mode of arrival: Ambulatory Limitations: No Limitations - History of Present Illness Initial comments: Patient is a 30-year-old female presents emergency room with complaints of right lower quadrant pain. Patient states she saw her [facility] in the reported that she had an ectopic but they want her to do bedrest and follow-up in 5 days. Patient states she was seen here on November 23 and had an ultrasound and labs done. The patient was seen on having bleeding for 5 weeks and had a positive home . Patient's was confirmed here however the ultrasound showed an empty uterus and consistent with a miscarriage. Patient was then discharged home And followed up with her [facility]. Patient states that her quant has remained positive. Patient states since. Patient states she is now been bleeding for 7-8 weeks. Patient states her bleeding has slowed down. Patient states her pain has decreased but she still having pain in the right lower quadrant. Patient denies fever and chills. Patient denies nausea vomiting. Patient denies recent travel. Patient denies recent international travel. Patient denies exposure to the novel coronavirus. Patient denies sick contacts. Patient denies fever and chills. Patient denies cough. Patient denies diarrhea. Patient denies coming in contact with anybody with symptoms of the novel coronavirus. MD Complaint: abdominal pain, vaginal bleeding -: Sudden Location: pelvis, abdomen Radiation: RLQ Severity: severe Severity scale (0 -10): 10 Quality: stabbing Consistency: constant Improves with: rest Worsens with: movement Associated symptoms: vaginal bleeding, abdominal pain Vaginal bleeding: heavy :: Yes OB History - Current : other OB History - Previous Pregnancies: no complications Pre- care: followed by OB - Related Data : 3 Para: 1 Ab: 1 Home Medications Medication Instructions Recorded Confirmed Last Taken Ferrous Sulfate [Feosol] 325 mg PO BID 12/24/16 12/24/16 12/23/16 Previous Rx's Medication Instructions Recorded Last Taken Type Ferrous Sulfate [Feosol 325 MG tab] 325 mg PO BID #30 tablet 12/25/16 Unknown Rx Ibuprofen [Motrin] 600 mg PO Q8H PRN #30 tablet 12/25/16 Unknown Rx Azithromycin [Zithromax Tri-Deon] 500 mg PO DAILY 3 Days #3 tablet 01/10/20 Unknown Rx dexAMETHasone [Taperdex] 1.5 mg PO DAILY 7 Days #1 tab.ds.pk 01/10/20 Unknown Rx Ondansetron [Zofran Odt] 4 mg PO Q6HR PRN #30 tab.rapdis 11/23/20 Unknown Rx Vit-Fe Fumar-FA [ 1 tab PO QDAY 30 Days #30 tab 11/23/20 Unknown Rx Vitamin] oxyCODONE /ACETAMINOPHEN [Percocet 1 tab PO Q6HR PRN #15 tablet 11/23/20 Unknown Rx 5/325 mg] Ibuprofen [Motrin] 800 mg PO Q8HR PRN #30 tablet 12/12/20 Unknown Rx oxyCODONE /ACETAMINOPHEN [Percocet 1 tab PO Q6HR PRN #30 tablet 12/12/20 Unknown Rx 5/325] Allergies Allergy/AdvReac Type Severity Reaction Status Date / Time No Known Allergies Allergy Verified 11/23/20 04:52 ED Review of Systems ROS: Stated complaint: ABD PAIN Other details as noted in HPI Constitutional: denies: chills, fever Eyes: denies: eye pain, eye discharge, vision change ENT: denies: ear pain, throat pain Respiratory: denies: cough, shortness of breath, wheezing Cardiovascular: denies: chest pain, palpitations Endocrine: no symptoms reported Gastrointestinal: as per HPI, abdominal pain. denies: nausea, diarrhea Genitourinary: as per HPI. denies: urgency, dysuria, discharge Musculoskeletal: denies: back pain, joint swelling, arthralgia Skin: denies: rash, lesions Neurological: denies: headache, weakness, paresthesias Psychiatric: denies: anxiety, depression Hematological/Lymphatic: denies: easy bleeding, easy bruising ED Past Medical Hx - Past Medical History Previous Medical History?: Yes Hx Hypertension: No Hx Congestive Heart Failure: No Hx Diabetes: No Hx Deep Vein Thrombosis: No Hx Renal Disease: No Hx Sickle Cell Disease: No Hx Seizures: No Hx Asthma: No Hx COPD: No Hx HIV: No Additional medical history: anemia - Surgical History Past Surgical History?: No - Family History Family history: no significant - Social History Smoking Status: Never Smoker Substance Use Type: None - Medications Home Medications: Home Medications Medication Instructions Recorded Confirmed Last Taken Type Ferrous Sulfate [Feosol] 325 mg PO BID 12/24/16 12/24/16 12/23/16 History Ferrous Sulfate [Feosol 325 MG tab] 325 mg PO BID #30 tablet 12/25/16 Unknown Rx Ibuprofen [Motrin] 600 mg PO Q8H PRN #30 tablet 12/25/16 Unknown Rx Azithromycin [Zithromax Tri-Deon] 500 mg PO DAILY 3 Days #3 tablet 01/10/20 Unknown Rx dexAMETHasone [Taperdex] 1.5 mg PO DAILY 7 Days #1 tab.ds.pk 01/10/20 Unknown Rx Ondansetron [Zofran Odt] 4 mg PO Q6HR PRN #30 tab.rapdis 11/23/20 Unknown Rx Vit-Fe Fumar-FA [ 1 tab PO QDAY 30 Days #30 tab 11/23/20 Unknown Rx Vitamin] oxyCODONE /ACETAMINOPHEN [Percocet 1 tab PO Q6HR PRN #15 tablet 11/23/20 Unknown Rx 5/325 mg] Ibuprofen [Motrin] 800 mg PO Q8HR PRN #30 tablet 12/12/20 Unknown Rx oxyCODONE /ACETAMINOPHEN [Percocet 1 tab PO Q6HR PRN #30 tablet 12/12/20 Unknown Rx 5/325] ED Physical Exam - General Limitations: No Limitations General appearance: alert, in no apparent distress - Head Head exam: Present: atraumatic, normocephalic - Eye Eye exam: Present: normal appearance - ENT ENT exam: Present: mucous membranes moist - Neck Neck exam: Present: normal inspection - Respiratory Respiratory exam: Present: normal lung sounds bilaterally. Absent: respiratory distress - Cardiovascular Cardiovascular Exam: Present: regular rate, normal rhythm. Absent: systolic murmur, diastolic murmur, rubs, gallop - GI/Abdominal GI/Abdominal exam: Present: soft, tenderness (Right lower quadrant tenderness), normal bowel sounds - Extremities Exam Extremities exam: Present: normal inspection - Back Exam Back exam: Present: normal inspection - Neurological Exam Neurological exam: Present: alert, oriented X3 - Psychiatric Psychiatric exam: Present: normal affect, normal mood - Skin Skin exam: Present: warm, dry, intact, normal color. Absent: rash ED Course Vital Signs 12/12/20 12/12/20 12/12/20 01:10 01:17 01:29 Temperature 98.1 F 98.1 F Pulse Rate 111 H Respiratory 18 18 Rate Blood Pressure 147/100 O2 Sat by Pulse 97 100 Oximetry 12/12/20 12/12/20 12/12/20 06:55 09:00 09:05 Temperature 99.6 F 97.8 F Pulse Rate 69 89 93 H Respiratory 18 20 18 Rate Blood Pressure 122/85 138/87 134/76 O2 Sat by Pulse 100 100 100 Oximetry 12/12/20 12/12/20 12/12/20 09:07 09:10 09:15 Temperature Pulse Rate 79 72 Respiratory 20 18 12 Rate Blood Pressure 145/99 141/90 O2 Sat by Pulse 100 100 Oximetry 12/12/20 12/12/20 12/12/20 09:17 09:27 09:30 Temperature Pulse Rate 64 Respiratory 15 12 12 Rate Blood Pressure 145/94 O2 Sat by Pulse 99 Oximetry 12/12/20 12/12/20 12/12/20 09:37 09:45 09:47 Temperature Pulse Rate 71 Respiratory 14 14 16 Rate Blood Pressure 128/83 O2 Sat by Pulse 97 Oximetry 12/12/20 12/12/20 12/12/20 09:57 10:00 10:07 Temperature 98.7 F Pulse Rate 68 Respiratory 16 14 14 Rate Blood Pressure 131/80 O2 Sat by Pulse 97 Oximetry 12/12/20 12/12/20 12/12/20 10:15 10:30 10:45 Temperature Pulse Rate 72 84 79 Respiratory 11 L 17 13 Rate Blood Pressure 118/85 119/75 122/75 O2 Sat by Pulse 95 95 95 Oximetry 12/12/20 12/12/20 12/12/20 11:13 11:15 11:45 Temperature Pulse Rate Respiratory 16 18 14 Rate Blood Pressure O2 Sat by Pulse Oximetry - Reevaluation(s) Reevaluation #1: I discussed all results with patient. I discussed plan of care with patient. Patient agrees with plan of care and admission. Patient to be admitted to the [facility] service. 12/12/20 03:03 - Consultations Consultation #1: I discussed the case with Dr. Brush, [employer]. Dr. Brush is going to take patient to the operating room. 12/12/20 02:54 ED Medical Decision Making - Lab Data Result diagrams: 12/12/20 02:20 12/12/20 02:20 - Radiology Data Radiology results: report reviewed Pelvic ultrasound with Doppler INDICATION: Right abdominal and pelvic pain FINDINGS: No intrauterine is identified. The endometrial thickness measures about 3 mm. There are several cystlike lesions within the left ovary the largest which measures about 3 cm in diameter. Within the right ovary, there are several complex cystic the solid appearing lesions with the largest measuring about 5.2 cm in diameter. These lesions have significantly enlarged when compared to 11/23/2020. There is complex fluid within the cul-de-sac and adjacent to the right adnexa. IMPRESSION: No intrauterine identified. Complex fluid within the cul-de-sac in the right adnexa is concerning for hemoperitoneum of the pelvis. There are several somewhat poorly defined but heterogeneous appearing solid masses adjacent to the right adnexa with the largest measuring about 5.2 cm in greatest diameter. These appear to have developed since the prior exam where they were not as well identified. These findings are suspicious for right adnexal ectopic preg chaz with adjacent hemorrhage. - Medical Decision Making Patient is a 30-year-old continuous abdominal pain, pelvic pain and vaginal bleeding. Patient was recently diagnosed with and found to have an empty uterus on her previous ultrasound. Patient returned to the ER because her symptoms worse. Patient states she saw her [facility] and they found it to be a tubal and stated they would see her in a week. Patient was concerned and came to emergency room for a second opinion and evaluation. Patient had labs done which were essentially unremarkable and showed a low but positive hCG. Patient had an ultrasound transvaginal and it showed a possible tubal but definitely confirmed the type of . I then discussed this with the [facility]ER the MECH[facility]ICAL CAR [facility]ER states that they want to take the patient to the operating room. Patient agree with plan of care. Patient admitted to the [facility] service. Critical care time documented due to the multiple reassessments, prolonged time at the bedside, interpretation of diagnostics and labs. - Differential Diagnosis Type of , abdominal pain, vaginal bleeding, miscarriage, Critical Care Time: Yes Critical care time in (mins) excluding proc time.: 35 Critical care attestation.: If time is entered above; I have spent that time in minutes in the direct care of this critically ill patient, excluding procedure time. Critical Care Time: 35 minutes ED Disposition Clinical Impression: Vaginal bleeding affecting early , Abdominal pain affecting , Right lower quadrant abdominal pain Ectopic Qualifiers: Location of ectopic : tubal Intrauterine status: without intrauterine Laterality: right Qualified Code(s): O00.101 - Right tubal without intrauterine Disposition: -09 OP ADMIT IP TO THIS HOSP Is pt being admited?: Yes Does the pt Need Aspirin: No Condition: Stable Time of Disposition: 03:05
[2020-12-12] MEDS ORDERED: ONDANSETRON 4 MG/2 ML INJ IV ONE (02:20)
[2020-12-12] MEDS ORDERED: SODIUM CHLORIDE 0.9% 1000 ML 1,000 ML IV ONE (02:20)
[2020-12-12] MEDS ORDERED: HYDROmorphone 1 MG/1 ML INJ IV ONE ×2 (02:20→05:59)
--- NOTE | 2020-12-12 02:21 | Ultrasound Report ---
Pelvic ultrasound with Doppler INDICATION: Right abdominal and pelvic pain FINDINGS: No intrauterine is identified. The endometrial thickness measures about 3 mm. The re are several cystlike lesions within the left ovary the largest which measures about 3 cm in diamet er. Within the right ovary, there are several complex cystic the solid appearing lesions with the lar gest measuring about 5.2 cm in diameter. These lesions have significantly enlarged when compared to . There is complex fluid within the cul-de-sac and adjacent to the right adnexa. IMPRESSION: No intrauterine identified. Complex fluid within the cul-de-sac in the right ad nexa is concerning for hemoperitoneum of the pelvis. There are several somewhat poorly defined but he terogeneous appearing solid masses adjacent to the right adnexa with the largest measuring about 5.2 cm in greatest diameter. These appear to have developed since the prior exam where they were not as w ell identified. These findings are suspicious for right adnexal ectopic with adjacent hemor rhage. Signer Name: Tyler Man MD Signed: 12/12/2020 2:16 AM Workstation Name: [id number]
[2020-12-12 02:32] LABS: Basophils # (Auto) 0.1 K/mm3 (0.0-0.1); Basophils % (Auto) 1.3 % (0.0-1.8); Eosinophils # (Auto) 0.1 K/mm3 (0.0-0.4); Eosinophils % (Auto) 2.7 % (0.0-4.3); Hematocrit 34.4 % (30.3-42.9); Hemoglobin 12.3 gm/dl (10.1-14.3); Lymphocytes # (Auto) 1.2 K/mm3 (1.2-5.4); Lymphocytes % (Auto) 24.6 % (13.4-35.0); Mean Corpuscular HGB Conc 36 % (30-34); Mean Corpuscular Volume 93 fl (79-97); Monocytes # (Auto) 0.4 K/mm3 (0.0-0.8); Monocytes % (Auto) 7.2 % (0.0-7.3); Platelet Count 179 K/mm3 (140-440); Red Blood Count 3.69 M/mm3 (3.65-5.03); Red Cell Distribution Width 12.6 % (13.2-15.2)
[2020-12-12 02:51] LABS: Alanine Aminotransferase 8 units/L (7-56); Albumin 4.2 g/dL (3.9-5); Blood Urea Nitrogen 5 mg/dL (7-17); Calcium 8.8 mg/dL (8.4-10.2); Hemolysis Index 1
[2020-12-12 02:52] LABS: BUN/Creatinine Ratio 8
--- NOTE | 2020-12-12 04:29 | History and Physical Report ---
History of Present Illness Date of examination: 12/12/20 Chief complaint: right lower quadrant pain History of present illness: Pt is a 30 year old female LMP 10/26/20 at 6w5d by LMP presents with a three week history of worsening right lower quadrant pain. She began bleeding on October 26, 2020. She was taking OCPs named "Izxzyblum" which she received after a telemedicine appt with an outside physician. She ran out of her pills around that time and began bleeding. She mentions that she began having light to moderate vaginal bleeding after that, and she noted a severe Right lower quadrant pain in mid November. 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 Her pain has persisted and worsened this evening with findings of a complex right adnexal mass and adjacent hemorrhage on CT scan. Past History Past Medical History: no pertinent history Past Surgical History: D&C Family/Genetic History: heart disease Social history: no significant social history - Obstetrical History : 3 Para: 1 Hx # Term Pregnancies: 1 Number of Pregnancies: 0 Spontaneous Abortions: 0 Induced : 1 Number of Living Children: 1 Medications and Allergies Allergies Allergy/AdvReac Type Severity Reaction Status Date / Time No Known Allergies Allergy Verified 11/23/20 04:52 Home Medications Medication Instructions Recorded Confirmed Last Taken Type Ferrous Sulfate [Feosol] 325 mg PO BID 12/24/16 12/24/16 12/23/16 History Ferrous Sulfate [Feosol 325 MG tab] 325 mg PO BID #30 tablet 12/25/16 Unknown Rx Ibuprofen [Motrin] 600 mg PO Q8H PRN #30 tablet 12/25/16 Unknown Rx Azithromycin [Zithromax Tri-Deon] 500 mg PO DAILY 3 Days #3 tablet 01/10/20 Unknown Rx dexAMETHasone [Taperdex] 1.5 mg PO DAILY 7 Days #1 tab.ds.pk 01/10/20 Unknown Rx Ondansetron [Zofran Odt] 4 mg PO Q6HR PRN #30 tab.rapdis 11/23/20 Unknown Rx Vit-Fe Fumar-FA [ 1 tab PO QDAY 30 Days #30 tab 11/23/20 Unknown Rx Vitamin] oxyCODONE /ACETAMINOPHEN [Percocet 1 tab PO Q6HR PRN #15 tablet 11/23/20 Unknown Rx 5/325 mg] Review of Systems All systems: negative Gastrointestinal: abdominal pain - Vital Signs Vital signs: Vital Signs Temp 98.1 F 12/12/20 01:10 Temp Pulse Resp BP Pulse Ox 98.1 F 111 H 18 147/100 100 12/12/20 01:29 12/12/20 01:29 12/12/20 01:29 12/12/20 01:12/12/20 01:29 - Physical Exam Breasts: Positive: deferred Cardiovascular: Regular rate Lungs: Positive: Clear to auscultation Abdomen: Positive: soft, tenderness (RLQ ). Negative: distention Extremities: Positive: normal Results Result Diagrams: 12/12/20 02:20 12/12/20 02:20 Abnormal lab results 12/12/20 12/12/20 12/12/20 Range/Units 02:20 02:20 02:20 MCH 33 H (28-32) pg MCHC 36 H (30-34) % RDW 12.6 L (13.2-15.2) % BUN 5 L (7-17) mg/dL HCG, Quant 25.51 H (0-4) mIU/mL All other labs normal. 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
[2020-12-12] MEDS ORDERED: LACTATED RINGERS 1,000 ML IV SCH ×2 (04:45→07:00)
[2020-12-12] MEDS ORDERED: ceFAZolin/Water 2 GM/20 ML 2 GM/20 ML SYRINGE IV NR (05:00)
--- NOTE | 2020-12-12 06:56 | Anesthesia Consultation ---
Anesthesia Consult and Med Hx Date of service: 12/12/20 - Airway Anesthetic Teeth Evaluation: Good ROM Head & Neck: Adequate Mental/Hyoid Distance: Adequate Mallampati Class: Class II - Pulmonary Exam CTA: Yes - Cardiac Exam Cardiac Exam: RRR - Pre-Operative Health Status ASA Pre-Surgery Classification: ASA2, Emergency Proposed Anesthetic Plan: General - Pulmonary Hx Asthma: No COPD: No Hx Pneumonia: No - Cardiovascular System Hx Hypertension: No - Central Nervous System Hx Seizures: No Hx Psychiatric Problems: No - Endocrine Hx Renal Disease: No Hx End Stage Renal Disease: No Hx Hypothyroidism: No Hx Hyperthyroidism: No - Hematic Hx Anemia: Yes Hx Sickle Cell Disease: No - Other Systems Hx Alcohol Use: No
--- NOTE | 2020-12-12 06:56 | Anesthesia Day of Surgery ---
Anesthesia Day of Surgery - Day of Surgery Patient Examined: Yes Patient H&P Reviewed: Yes Patient is NPO: Yes
[2020-12-12] MEDS ORDERED: propofoL 200 MG/20 ML VIAL IV ONE (06:58)
[2020-12-12] MEDS ORDERED: fentaNYL 100 MCG/2 ML INJ ONE ×2 (06:58→09:46)
[2020-12-12] MEDS ORDERED: BUPIVACAINE/PF (0.5%) 5 MG/1 ML 30 ML VIAL INFILTRATI ONE ×3 (06:59→08:00)
[2020-12-12] MEDS ORDERED: MIDAZOLAM 2 MG/2 ML INJ IV NR (07:00)
[2020-12-12] MEDS ORDERED: ONDANSETRON 4 MG/2 ML INJ ONE (07:44)
[2020-12-12] MEDS ORDERED: ROCURONIUM 50 MG/5 ML INJ IV ONE (07:44)
[2020-12-12] MEDS ORDERED: SUCCINYLCHOLINE CHLORIDE 200 MG/10 ML INJ MDV ONE (07:44)
[2020-12-12] MEDS ORDERED: dexAMETHasone 20 MG/5 ML VIAL ONE (07:44)
[2020-12-12] MEDS ORDERED: LIDOCAINE MPF (2%) 20 MG/1 ML VIAL 5 ML ONE (07:44)
[2020-12-12] MEDS ORDERED: SODIUM CHLORIDE 0.9% IRR 1,500 ML BOTTLE IR ONE (08:00)
[2020-12-12] MEDS ORDERED: SILVER NITRATE APPLICATOR 1 EA TP ONE ×3 (08:00→08:49)
[2020-12-12] MEDS ORDERED: KETOROLAC 30 MG/1 ML INJ ONE ×2 (08:28)
[2020-12-12] MEDS ORDERED: NEOSTIGMINE 10MG/10 ML INJ MDV ONE (08:33)
[2020-12-12] MEDS ORDERED: GLYCOPYRROLATE 0.4 MG/2 ML INJ ONE (08:33)
[2020-12-12] MEDS ORDERED: HYDROmorphone 1 MG/1 ML INJ IV PRN (09:05)
[2020-12-12] MEDS ORDERED: HYDROmorphone 1 MG/1 ML INJ ONE (09:05)
[2020-12-12] MEDS: HYDROmorphone 1 MG/1 ML INJ IV PRN ×4 (09:07→09:37)
--- NOTE | 2020-12-12 09:17 | Operative Report ---
Operative Report Operative Report: Date of Surgery: December 12, 2020 Preoperative Diagnosis: Right ectopic Postoperative Diagnosis: Same Procedure: Laparoscopic Right Salpingectomy Surgeon: Mariam Brush MD Automobile Rental Representative: January Mendez MD Anesthesia: GETA Findings: 1) Small mobile anteverted uterus 2) Right ectopic ~ 5 cm 3) Normal appearing uterus, ovaries and left fallopian tube 4) Hemoperitoneum EBL: 50 mL Urine output: 75 mL, clear at the end of the procedure Specimen: Right ectopic and fallopian tube to pathology Complications: None. Counts correct x 2 Disposition: Stable to PACU Indication for Procedure: This pt is a 30 year old female who presents for surgical management of right lower quadrant pain and ultrasound findings consistent with right ectopic . Operation In Detail: After the risks, benefits, complications and alternatives were explained to the patient, she gave informed consent for the procedure. She was then taken to the operating room and placed in the dorsal supine position with her IV noted to be running well and SCDs in place and functioning. General endotracheal anesthesia was induced without difficulty. The patient was then placed in the dorsal lithotomy position and prepped and draped in a normal sterile fashion, including dominguez catheter placement. A time out was then performed. An exam under anesthesia revealed a small mobile antevereted uterus. A bi-valve speculum was placed in the vagina to visualize the cervix. A single tooth tenaculum was placed on the anterior lip of the cervix for traction. A uterine manipulator was then placed. The speculum was removed from the vagina atraumatically. The surgeon's gloves were then changed. Attention was then turned to entry into the abdominal cavity. A 5 mm incision was made with an 11 blade four centimeters superior to the umbilicus. The skin was grasped on either side of the umbilicus and tented up. The Veres needle was placed into the peritoneal cavity, confirmed with a saline drop test. The abdomen was then insufflated with CO2 gas to a pressure of 15 mmHg. A 5 mm optical trocar was then placed. An anatomic survey was then performed with findings as indicated above. A second trocar site was created 4 cm superior to the pubic symphysis in the midline measuring 10 mm. An 10 mm trocar was then placed under direct visualization. A third 5 mm trocar was placed in the LLQ under direct visualization, lateral to the rectus muscles. The patient was placed in the Trendelenburg position. The uterus was elevated, and each fallopian tube was followed out to the fimbriae and the right ectopic was noted. The right fallopian tube containing the ectopic pregnacy was excised using a 5 mm Ligasure device. It was then placed in an Endobag, removed through the 10 mm incision and sent to pathology. Hemostasis was noted. Hemoblast was placed along the remaining pedicles. All instruments were removed from the abdominal cavity. Next, the Tom Collins device was used to reapproximate the fascia of the 10 mm incision with 0-Vicryl. The pneumoperitoneum was released. The trocars were removed atraumatically. The three incisions were infiltrated with half percent Marcaine, reapproximated with 3-0 Monocryl in a subcuticular fashion and then covered with skin glue. All instruments were then removed atraumatically from the vagina. Silver nitrate was placed at the tenaculum puncture sites to obtain hemostasis. At this time the procedure was ended. The patient was placed into the dorsal supine position and extubated without difficulty. She was subsequently taken to the PACU in stable condition. All instrument, needle and lap counts were correc t 2.
[2020-12-12] MEDS ORDERED: fentaNYL 100 MCG/2 ML INJ IV ONE ×2 (10:00→10:15)
--- NOTE | 2020-12-12 10:37 | Short Stay Summary ---
Short Stay Documentation Date of service: 12/12/20 - History H&P: dictated Social history: no significant social history - Allergies and Medications Current Medications: Allergies No Known Allergies Allergy (Verified 11/23/20 04:52) Home Medications Medication Instructions Recorded Confirmed Last Taken Type Ferrous Sulfate [Feosol] 325 mg PO BID 12/24/16 12/24/16 12/23/16 History Ferrous Sulfate [Feosol 325 MG tab] 325 mg PO BID #30 tablet 12/25/16 Unknown Rx Ibuprofen [Motrin] 600 mg PO Q8H PRN #30 tablet 12/25/16 Unknown Rx Azithromycin [Zithromax Tri-Deon] 500 mg PO DAILY 3 Days #3 tablet 01/10/20 Unknown Rx dexAMETHasone [Taperdex] 1.5 mg PO DAILY 7 Days #1 tab.ds.pk 01/10/20 Unknown Rx Ondansetron [Zofran Odt] 4 mg PO Q6HR PRN #30 tab.rapdis 11/23/20 Unknown Rx Vit-Fe Fumar-FA [ 1 tab PO QDAY 30 Days #30 tab 11/23/20 Unknown Rx Vitamin] oxyCODONE /ACETAMINOPHEN [Percocet 1 tab PO Q6HR PRN #15 tablet 11/23/20 Unknown Rx 5/325 mg] Ibuprofen [Motrin] 800 mg PO Q8HR PRN #30 tablet 12/12/20 Unknown Rx oxyCODONE /ACETAMINOPHEN [Percocet 1 tab PO Q6HR PRN #30 tablet 12/12/20 Unknown Rx 5/325] Active Medications Hydromorphone HCl (Hydromorphone 1 Mg/1 Ml Inj) 0.25 mg IV Q10MIN PRN PRN Reason: Pain, Moderate (4-6) Lactated Ringer's (Lactated Ringers) 1,000 mls @ 100 mls/hr IV DIRECT JOSELIN Last Admin: 12/12/20 06:55 Dose: 100 mls/hr Documented by: Midazolam HCl (Midazolam 2 Mg/2 Ml Inj) 2 mg IV PREOP NR Stop: 12/12/20 23:59 Last Admin: 12/12/20 07:08 Dose: 2 mg Documented by: - Physical exam Breasts: deferred - Brief post op/procedure progress note Date of procedure: 12/12/20 Pre-op diagnosis: Right Ectopic Post-op diagnosis: same Procedure: Laparoscopic Right Salpingectomy Anesthesia: GETA Findings: 1) Right Ectopic , unruptured 2) Hemoperitoneum Surgeon: GERARDO CHARLES Office Clin Asst: FREIDA REEDER Estimated blood loss: 50-100ml (50 mL) Pathology: list (right ectopic ) Specimen disposition: to lab Condition: stable - Hospital course Hospital course: Please see operative report - Disposition Condition at discharge: Stable Disposition: DC- TO HOME OR SELFCARE - Discharge Diagnoses (1) Abdominal pain affecting Status: Acute (2) Ectopic Status: Acute Qualifiers: Location of ectopic : tubal Intrauterine status: without intrauterine Laterality: right Qualified Code(s): O00.101 - Right tubal without intrauterine (3) Right lower quadrant abdominal pain Status: Acute Short Stay Discharge Plan Activity: other (Nothing in vagina, no tub baths for 4 weeks, no heavy lifting or strenuous activity ) Weight Bearing Status: Full Weight Bearing Diet: regular Wound: keep clean and dry Additional Instructions: NO SEX , NO DOUCHE, NO TAMPONS, NOTHING IN VAGINA UNTIL APPROVED BY DR. CHARLES WOUND - KEEP WOUND CLEAN AND DRY; DO NOT USE RUBBING ALCOHOL ON AREAS; CAN CLEAN WITH SOAP AND WATER; PAT DRY; DO NOT RUB AREAS CALL FOR FOLLOW-UP APPOINTMENT AND IF YOU HAVE ANY QUESTIONS OR CONCERNS REGARDING PROCEDURE. Follow up with: PRIMARY MD GIO [Primary Care Provider] - 7 Days GERARDO CHARLES MD [Staff Physician] - 12/16/20 Forms: Outpatient Surgery DC Inst. Prescriptions: Ibuprofen [Motrin] 800 mg PO Q8HR PRN #30 tablet PRN Reason: Pain, Moderate (4-6) oxyCODONE /ACETAMINOPHEN [Percocet 5/325] 1 tab PO Q6HR PRN #30 tablet PRN Reason: Pain
[2020-12-12] MEDS ORDERED: oxyCODONE /ACETAMINOPHEN 5-325MG TAB ONE (11:11)
[2020-12-12] MEDS ORDERED: oxyCODONE /ACETAMINOPHEN 5-325MG TAB PO PRN (11:12)
[2020-12-12 11:50] VITALS: BP 122/75
--- NOTE | 2020-12-12 13:16 | Post Anesthesia Evaluation ---
- Post Anesthesia Evaluation Patient Participated: Yes Airway Patent: Yes Stable Respiratory Function: Yes Nausea/Vomiting: No Temp > 96.8F: Yes Pain Manageable: Yes Adequeate Hydration: Yes Anesthesia Complications: No Block Receding Appropriately: Not Applicable Patient on Ventilator: No
== END 2020-12-12 11:20 | disposition home or self-care (01) ==
LOC: ED 01:10 → OR 07:41
PROVIDERS: ATTEND Obstetrics & Gynecology
DX: O00.101 Right tubal pregnancy without intrauterine pregnancy (principal); Z3A.08 8 weeks gestation of pregnancy; D64.9 Anemia, unspecified; Z79.899 Other long term (current) drug therapy; Z80.8 Family history of malignant neoplasm of other organs or systems; Z82.49 Family history of ischemic heart disease and other diseases of the circulatory system
CPT/HCPCS: 36415; 59151; 76817; 80053; 84702; 85025; 86850; 86900; 86901; 88305; 99285; J0330; J0690; J1100; J1170; J1885; J2250; J2405; J2704; J2710; J3010; J7030; J7120

== ENCOUNTER 2021-03-12 07:39 | Outpatient (CLI) | payer BC ==
[2021-03-12 08:16] LABS: Basophils # (Auto) 0.1 K/mm3 (0.0-0.1); Basophils % (Auto) 0.7 % (0.0-1.8); Eosinophils # (Auto) 0.2 K/mm3 (0.0-0.4); Eosinophils % (Auto) 2.8 % (0.0-4.3); Hemoglobin 10.2 gm/dl (10.1-14.3); Lymphocytes # (Auto) 2.6 K/mm3 (1.2-5.4); Lymphocytes % (Auto) 34.8 % (13.4-35.0); Mean Corpuscular HGB Conc 34 % (30-34); Mean Corpuscular Volume 92 fl (79-97); Monocytes # (Auto) 0.7 K/mm3 (0.0-0.8); Monocytes % (Auto) 9.6 % (0.0-7.3); Platelet Count 204 K/mm3 (140-440); Red Blood Count 3.26 M/mm3 (3.65-5.03); Red Cell Distribution Width 13.4 % (13.2-15.2)
[2021-03-12 08:18] LABS: Bilirubin,Urine NEG (Negative); Blood,Urine NEG (Negative); Color,Urine Yellow (Yellow); Mucus,Urine FEW /HPF; Protein,Urine <15 mg/dL mg/dL (Negative)
[2021-03-12 13:43] LABS: Hepatitis C Virus Antibody Non-Reactive (NonReactive)
[2021-03-12 13:46] LABS: Hepatitis B Surface Antigen Nonreactive (Negative)
[2021-03-17 08:56] LABS: HIV-1 Antibody Differentiation SEE SCANNED RESULT; HIV-2 Antibody Differentiation SEE SCANNED RESULT
[2021-03-18 05:47] LABS: ANA Screen, IFA Positive (Negative)
[2021-04-08 13:15] LABS: Hemoglobin A2 Prime SEE SCANNED RESULTS; Hemoglobin Barts SEE SCANNED RESULTS; Hemoglobin E SEE SCANNED RESULTS; Hemoglobin G SEE SCANNED RESULTS; Hemoglobin Lepore SEE SCANNED RESULTS; Hemoglobin O-Arab SEE SCANNED RESULTS; IEF Confirm SEE SCANNED RESULTS; Interpretation SEE SCANNED RESULTS; Sickle Solubility Test SEE SCANNED RESULTS
== END 2021-03-12 07:40 | disposition home or self-care (01) ==
LOC: LAB 07:39
PROVIDERS: ATTEND Obstetrics & Gynecology
DX: Z34.90 Encounter for supervision of normal pregnancy, unspecified, unspecified trimester (principal); Z13.1 Encounter for screening for diabetes mellitus
CPT/HCPCS: 36415; 80074; 81001; 85025; 86038; 86592; 86689; 86762; 86900; 86901; 87086

== ENCOUNTER 2021-08-07 13:25 | Outpatient (CLI) | payer BC ==
--- NOTE | 2021-08-10 08:23 | Ultrasound Report ---
ULTRASOUND BREAST LEFT COMPLETE, 08/07/2021 CLINICAL INFORMATION / INDICATION: Patient's physician palpates a lump in the left breast. Patient ho s family history of sister with breast carcinoma at 39 years old. Patient is 33 weeks .. TECHNIQUE: Complete sonographic evaluation of all 4 quadrants and retroareolar region was performed. COMPARISON: None. FINDINGS: Sonographic evaluation of the entire left breast does demonstrate a small simple cyst at 1:00, anteri or depth, adjacent to the nipple measuring approximately 7 x 3 mm. Patient is unclear as to where the palpable lump felt by her physician is located within the breast, so correlation is unclear. No othe r significant findings are seen throughout the remainder of the left breast. No solid mass, additiona l cyst, or area of suspicious shadowing is noted. IMPRESSION: No sonographic evidence of malignancy. There is a 7 mm simple cyst at 1:00, anterior dept h noted. However patient is unsure as to where the palpable lump is located within the breast and the refore correlation is unclear. Clinical correlation is recommended. Due to patient's family history of breast carcinoma, I would strongly recommend beginning annual scre ening mammography, once patient has delivered. Patient should come prepared to breast feed or pump br east milk at time of mammogram exam. Follow up recommendation: Routine yearly BI-RADS Category 2: BENIGN. A normal or "negative" report should not preclude biopsy or follow-up of a clinically suspicious find ing. Signer Name: Francisca Lala MD Signed: 08/10/2021 8:18 AM Workstation Name: [id number]
== END 2021-08-07 13:26 | disposition home or self-care (01) ==
LOC: US 13:25
PROVIDERS: ATTEND Obstetrics & Gynecology
DX: N60.02 Solitary cyst of left breast (principal)

== ENCOUNTER 2021-09-15 02:29 | Inpatient (IN) | payer BC ==
[2021-09-15] MEDS ORDERED: LACTATED RINGERS 1,000 ML IV ONE (03:30)
[2021-09-15] MEDS ORDERED: LACTATED RINGERS 1,000 ML ONE ×2 (03:40→07:14)
--- NOTE | 2021-09-15 06:05 | Ultrasound Report ---
ULTRASOUND OBSTETRIC LIMITED ULTRASOUND BIOPHYSICAL PROFILE INDICATION / CLINICAL INFORMATION: well being. COMPARISON: None available. FINDINGS: BREATHING MOVEMENT = 2 GROSS BODY MOVEMENT = 2 TONE = 2 QUALITATIVE AMNIOTIC FLUID VOLUME = 2 TOTAL BIOPHYSICAL SCORE = 8/8 HEART RATE (beats per minute): 151 PRESENTATION: Cephalic. ADDITIONAL FINDINGS: None. IMPRESSION: 1. Biophysical Score = 8/8 Signer Name: Easton Lopez MD Signed: 09/15/2021 6:01 AM Workstation Name: [email or web address]
[2021-09-15] MEDS ORDERED: METHYLERGONOVINE MALEATE 0.2 MG/ML VIAL IM PRN (08:00)
[2021-09-15] MEDS ORDERED: OXYTOCIN DRIP 30 UNITS/500 ML BAG IV SCH ×2 (08:00→09:00)
[2021-09-15] MEDS ORDERED: LACTATED RINGERS 1,000 ML IV SCH (08:00)
[2021-09-15 08:07] LABS: Hematocrit 29.2 % (30.3-42.9); Hemoglobin 9.4 gm/dl (10.1-14.3)
[2021-09-15] MEDS ORDERED: CARBOPROST TROMETHAMINE 250 MCG/1 ML INJ IM PRN (08:30)
[2021-09-15] MEDS ORDERED: fentaNYL 100 MCG/2 ML INJ IV PRN (08:30)
[2021-09-15] MEDS ORDERED: ePHEDrine SULFATE 50 MG/1 ML INJ IV PRN (08:30)
[2021-09-15] MEDS ORDERED: LOPERAMIDE 2 MG CAP PO PRN (08:30)
[2021-09-15] MEDS ORDERED: ACETAMINOPHEN 325 MG TAB PO PRN ×2 (08:30→13:30)
[2021-09-15] MEDS ORDERED: miSOPROStol 200 MCG TAB PR PRN (09:00)
[2021-09-15] MEDS ORDERED: LIDOCAINE (2%) 20 MG/1 ML VIAL 20 ML MDV INFILTRATI SCH (09:00)
[2021-09-15] MEDS ORDERED: MINERAL OIL 30 ML ORAL LIQD PO PRN (09:00)
[2021-09-15] MEDS ORDERED: NalbUPHINE 10 MG/1 ML INJ IV PRN (09:00)
[2021-09-15] MEDS ORDERED: OXYTOCIN 10 UNIT/1 ML INJ IM PRN (09:00)
[2021-09-15] MEDS ORDERED: TERBUTALINE 1 MG/1 ML INJ SUB-Q PRN (09:00)
--- NOTE | 2021-09-15 09:10 | History and Physical Report ---
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 has been complicated by lapse in care between 10 and 26 wks, N/V, left breast lump and sinusitis. Reports to [facility] this AM with reports of painful ctxs since 9 pm last night. She was evaluated and went on to make cervical change and admitted. Reports +FM. Denies any VB or LOF. Labs: A+, antibody negative; rubella immune; VDRL negative; urine culture negative; HBsAg negative; HIV negative; Hep C negative; plts 204; GC/Chlamydia negative; low-risk NIPT; 1 hr gtt 87; GBS negative. 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 denies: alcohol abuse, prescription drug abuse, IV drug use - Obstetrical History Expected Date of Delivery: 09/22/21 Actual Gestation: 39 Week(s) 0 Day(s) : 4 Para: 2 Hx # Term Pregnancies: 1 Number of Pregnancies: 0 Spontaneous Abortions: 1 Induced : 1 Number of Living Children: 1 #1 Infant Gender: Female year: 2[age][birth year] Birthweight: 3.742 kg Method of Delivery: Vaginal Complications: none Medications and Allergies Allergies Allergy/AdvReac Type Severity Reaction Status Date / Time No Known Allergies Allergy Verified 11/23/20 04:52 Home Medications Medication Instructions Recorded Confirmed Last Taken Type Ferrous Sulfate [Feosol] 325 mg PO BID 12/24/16 12/24/16 12/23/16 History Ferrous Sulfate [Feosol 325 MG tab] 325 mg PO BID #30 tablet 12/25/16 Unknown Rx Ibuprofen [Motrin] 600 mg PO Q8H PRN #30 tablet 12/25/16 Unknown Rx Azithromycin [Zithromax Tri-Deon] 500 mg PO DAILY 3 Days #3 tablet 01/10/20 Unknown Rx dexAMETHasone [Taperdex] 1.5 mg PO DAILY 7 Days #1 tab.ds.pk 01/10/20 Unknown Rx Ondansetron [Zofran Odt] 4 mg PO Q6HR PRN #30 tab.rapdis 11/23/20 Unknown Rx Vit-Fe Fumar-FA [ 1 tab PO QDAY 30 Days #30 tab 11/23/20 Unknown Rx Vitamin] oxyCODONE /ACETAMINOPHEN [Percocet 1 tab PO Q6HR PRN #15 tablet 11/23/20 Unknown Rx 5/325 mg] Ibuprofen [Motrin] 800 mg PO Q8HR PRN #30 tablet 12/12/20 Unknown Rx oxyCODONE /ACETAMINOPHEN [Percocet 1 tab PO Q6HR PRN #30 tablet 12/12/20 Unknown Rx 5/325] Active Meds: Active Medications Acetaminophen (Acetaminophen 325 Mg Tab) 650 mg PO Q4H PRN PRN Reason: Pain, Mild (1-3) Carboprost Tromethamine (Carboprost Tromethamine 250 Mcg/1 Ml Inj) 250 mcg IM ONCE PRN PRN Reason: Uterine Bleeding Ephedrine Sulfate (Ephedrine Sulfate 50 Mg/1 Ml Inj) 10 mg IV Q2M PRN PRN Reason: Hypotension Fentanyl (Fentanyl 100 Mcg/2 Ml Inj) 100 mcg IV Q2H PRN PRN Reason: Pain,Severe (7-10) LABOR PAIN Oxytocin/Sodium Chloride (Pitocin/Ns 30 Unit/500ml) 30 units in 500 mls @ 2 mls/hr IV TITR JOSELIN; Protocol Lactated Ringer's (Lactated Ringers) 1,000 mls @ 125 mls/hr IV DIRECT JOSELIN Oxytocin/Sodium Chloride (Pitocin/Ns 30 Unit/500ml) 30 units in 500 mls @ 40 mls/hr IV TITR JOSELIN; Protocol Lidocaine (Lidocaine (2%) 20 Mg/1 Ml Vial 20 Ml Mdv) 20 ml INFILTRATI ONCE@0900 [facility] Stop: 09/16/21 08:59 Loperamide HCl (Loperamide 2 Mg Cap) 2 mg PO ONCE PRN PRN Reason: give with Hemabate Methylergonovine Maleate (Methylergonovine Maleate 0.2 Mg/Ml Vial) 0.2 mg IM ONCE PRN PRN Reason: Uterine Bleeding Mineral Oil (Mineral Oil 30 Ml Oral Liqd) 30 ml PO QHS PRN PRN Reason: Constipation Misoprostol (Misoprostol 200 Mcg Tab) 800 mcg DE ONCE PRN PRN Reason: Uterine Bleeding Nalbuphine HCl (Nalbuphine 10 Mg/1 Ml Inj) 10 mg IV Q2H PRN PRN Reason: Pain, Moderate (4-6) Oxytocin (Oxytocin 10 Unit/1 Ml Inj) 10 unit IM ONCE PRN PRN Reason: Uterine Bleeding Terbutaline Sulfate (Terbutaline 1 Mg/1 Ml Inj) 0.25 mg SUB-Q ONCE PRN PRN Reason: Hyperstimulation/Hypertonicity Review of Systems Genitourinary: contractions (frequent and painful) - Vital Signs Vital signs: Vital Signs Pulse Pulse Ox 90 96 09/15/21 03:12 09/15/21 03:12 Temp Pulse Resp BP Pulse Ox 98.5 F 83 20 102/61 99 09/15/21 07:28 09/15/21 09:05 09/15/21 07:28 09/15/21 07:23 09/15/21 09:05 - Physical Exam Cardiovascular: Regular rate Lungs: Positive: Normal air movement Abdomen: Positive: other (gravid) Genitourinary (Female): Positive: normal external genitalia, normal perenium Vagina: Positive: normal moisture Uterus: Positive: enlarged (S=D) Extremities: Positive: edema - Obstetrical FHR: category 1 Uterine Contraction Monitor Mode: External Cervical Dilatation: 7.5 (vertex) Cervical Effacement Percentage: 90 station: 0 Uterine Contraction Frequency (min): 3-5 Uterine Contraction Pattern: Irregular Uterine Tone Measurement Phase: Resting Uterine Contraction Intensity: Strong/Firm Results Result Diagrams: 09/15/21 10:46 Abnormal lab results 09/15/21 Range/Units 07:07 Hgb 9.4 L (10.1-14.3) gm/dl Hct 29.2 L (30.3-42.9) % All other labs normal. Assessment and Plan - Patient Problems (1) Active labor at term Current Visit: Yes Status: Acute Plan to address problem: AROM @ 0850, clear fluids, tolerated well Epidural as desired Anticipate
--- NOTE | 2021-09-15 09:26 | Anesthesia Consultation ---
Anesthesia Consult and Med Hx Date of service: 09/15/21 - Airway Anesthetic Teeth Evaluation: Good ROM Head & Neck: Adequate Mental/Hyoid Distance: Adequate Mallampati Class: Class II Intubation Access Assessment: Probably Good - Pulmonary Exam CTA: Yes - Cardiac Exam Cardiac Exam: RRR - Pre-Operative Health Status ASA Pre-Surgery Classification: ASA2 Proposed Anesthetic Plan: Epidural - Pulmonary Hx Asthma: No COPD: No Hx Pneumonia: No - Cardiovascular System Hx Hypertension: No - Central Nervous System Hx Seizures: No Hx Psychiatric Problems: No - Endocrine Hx Renal Disease: No Hx End Stage Renal Disease: No Hx Hypothyroidism: No Hx Hyperthyroidism: No - Hematic Hx Anemia: No Hx Sickle Cell Disease: No - Other Systems Hx Alcohol Use: No
--- NOTE | 2021-09-15 09:29 | Progress Note ---
Labor Epidural - Labor Epidural Start Time: 09:15 Stop Time: :20 Performed by:: BLAKE BETTS Procedure: Patient is requesting epidural for labor pain. H&P, and labs reviewed. Procedure explained, questions answered, consent obtained. Patient in sitting position with blood pressure cuff and pulse ox on and working. Timeout performed immediately before start of procedure. Sterile Chloraprep prep/drape. 3 mL 1% lidocaine skin wheal at L[3]-L[4]. 17-gauge tuohy epidural needle advanced to [id number] with saline at [7] cm. 25-gauge spinal needle advanced until clear, free-flowing CSF. Intrathecal dexmedetomidine [5] mcg administered and needle removed. Epidural catheter advanced to [12] cm, negative aspiration for blood and csf, negative test dose 3 ml 1.5% lidocaine with epinephrine. Sterile sponge and tegaderm applied, followed by tape reinforcement. Patient tolerated procedure well.
[2021-09-15] MEDS ORDERED: fentaNYL-BUPIV 2 MCG/ML-0.125% 200 MCG/100 ML BAG EPIDURAL ONE (09:40)
[2021-09-15 11:41] LABS: Hematocrit 26.8 % (30.3-42.9); Hemoglobin 8.7 gm/dl (10.1-14.3); Mean Corpuscular HGB Conc 32 % (30-34); Mean Corpuscular Volume 86 fl (79-97); Platelet Count 178 K/mm3 (140-440); Red Blood Count 3.13 M/mm3 (3.65-5.03); Red Cell Distribution Width 13.9 % (13.2-15.2)
[2021-09-15] MEDS ORDERED: LIDOCAINE MPF (2%) 20 MG/1 ML VIAL 5 ML ONE (11:53)
--- NOTE | 2021-09-15 12:23 | Procedure Note ---
OB Delivery Note - Delivery Date of Delivery: 09/15/21 Surgeon: ROSE MARIE PATEL Estimated blood loss: 200cc - Vaginal Delivery presentation: vertex Delivery position: OA Intrapartum events: none Delivery monitor: external FHT, external uterine Route of delivery: Delivery placenta: spontaneous Delivery cord: 3 umbilical vessels Episiotomy: none Delivery laceration: 1st degree Delivery repair: vicryl Anesthesia: epidural Delivery comments: The patient progressed to complete complete +1 and post to deliver a liveborn female infant with Apgars of 8 and 9 weight 8 pounds 12 ounces. After delivery of the head gentle downward traction was used to deliver the anterior shoulder. Once delivered the infant was immediately placed on the patient's abdomen. Delayed cord clamping was performed. The placenta delivered spontaneously intact with a three-vessel cord. The patient sustained a midline first-degree laceration that was repaired with 2-0 Vicryl in normal fashion. Estimated blood loss of 200 mL - Infant A at 1 minute: 8 at 5 minutes: 9 Gender: Female (Weight 8 pounds 12 ounces)
[2021-09-15] MEDS ORDERED: PROMETHAZINE 25 MG RECT SUPP PR PRN (13:30)
[2021-09-15] MEDS ORDERED: WITCH HAZEL/ GLYCERIN PAD TP PRN (13:30)
[2021-09-15] MEDS ORDERED: diphenhydrAMINE 25 MG CAP PO PRN (13:30)
[2021-09-15] MEDS ORDERED: ONDANSETRON 4 MG/2 ML INJ IV PRN (13:30)
[2021-09-15] MEDS ORDERED: LANOLIN/ZINC/DIMETHICONE (LANSINOH) 7 GM TP PRN (13:30)
[2021-09-15] MEDS ORDERED: PROMETHAZINE 25 MG TAB PO PRN (13:33)
[2021-09-15] MEDS: IBUPROFEN 600 MG TAB PO PRN (20:30)
[2021-09-15] MEDS ORDERED: MAGNESIUM HYDROXIDE (MOM) ORAL LIQD UDC PO PRN (22:00)
[2021-09-15] MEDS: HYDROcodone/ACETAMINOPHEN 5-325 MG TAB PO PRN (22:13)
[2021-09-16 03:20] LABS: Hematocrit 24.8 % (30.3-42.9)
--- NOTE | 2021-09-16 08:05 | Discharge Summary ---
Providers - Providers Date of Admission: 09/15/21 07:49 Date of discharge: 09/16/21 (1600) Attending physician: ROSE MARIE PATEL Primary care physician: ROSE MARIE PATEL Hospitalization Reason for admission: active labor Delivery: Episiotomy: none Laceration: 1st degree (healing as expected) Other procedures: none complications: none Discharge diagnosis: IUP at term delivered, other (anemia) baby: female Hospital course: 31 yo, @ 39 wks, initiated care with [facility] hospital[facility] physician at 10 wks gestation. has been complicated by lapse in care between 10 and 26 wks, N/V, left breast lump and sinusitis. Reports to [facility] this AM with reports of painful ctxs since 9 pm last night. She was evaluated and went on to make cervical change and admitted. Reports +FM. Denies any VB or LOF. Delivered viable female via . course has been uncomplicated. Met discharge criteria on PPD#1. Desires to go home today if baby cleared for discharge also. Condition at discharge: Good Disposition: 01 HOME / SELF CARE / HOMELESS - Discharge Diagnoses (1) Active labor at term Status: Acute (2) Anemia Status: Acute Qualifiers: Anemia type: iron deficiency Comment: Asymptomatic Increase iron rich foods into diet Continue daily oral iron supplementation as prescribed Plan - Discharge Medications Prescriptions: Ferrous Sulfate [Feosol 325 MG tab] 325 mg PO BID 30 Days #60 tablet Ibuprofen [Motrin 600 MG tab] 800 mg PO Q8H PRN #30 tablet PRN Reason: Pain, Mild (1-3) - Provider Discharge Summary Activity: routine, no sex for 6 weeks, no heavy lifting 4 weeks, no strenuous exercise Diet: other (Iron rich) Instructions: routine Additional instructions: [] Smoking cessation referral if applicable(refer to patient education folder for contact #) [] Refer to [facility]'s [facility] Booklet Call your doctor immediately for: * Fever > 100.5 * Heavy vaginal bleeding ( >1 pad per hour) * Severe persistent headache * Shortness of breath * Reddened, hot, painful area to leg or breast * Drainage or odor from incision. * Keep laceration site clean and dry at all times and follow doctor's instructions regarding bathing/showering - Follow up plan Follow up: ROSE MARIE PATEL MD [Primary Care Provider] - 6 Weeks
[2021-09-16] MEDS: IBUPROFEN 600 MG TAB PO PRN (08:10)
[2021-09-16] MEDS: HYDROcodone/ACETAMINOPHEN 5-325 MG TAB PO PRN (09:58)
[2021-09-16] MEDS ORDERED: FERROUS SULFATE 325 MG TAB PO SCH (10:00)
--- NOTE | 2021-09-16 11:40 | Post Anesthesia Evaluation ---
- Post Anesthesia Evaluation Patient Participated: Yes Airway Patent: Yes Stable Respiratory Function: Yes Nausea/Vomiting: No Temp > 96.8F: Yes Pain Manageable: Yes Adequeate Hydration: Yes Anesthesia Complications: No Block Receding Appropriately: Yes
[2021-09-16 16:15] VITALS: BP 116/80
== END 2021-09-16 16:25 | disposition home or self-care (01) | DRG 807 ==
LOC: TRG 02:29 → APU 02:30 → LD 07:12 → TRG 08:42 → OB 14:29
PROVIDERS: ADMIT Obstetrics & Gynecology; ATTEND Obstetrics & Gynecology
PROC: 10E0XZZ Delivery of Products of Conception, External Approach (ICD-10-PCS; principal; 2021-09-15)
PROC: 0HQ9XZZ Repair Perineum Skin, External Approach (ICD-10-PCS; 2021-09-15)
PROC: 3E0R3BZ Introduction of Anesthetic Agent into Spinal Canal, Percutaneous Approach (ICD-10-PCS; 2021-09-15)
PROC: 00HU33Z Insertion of Infusion Device into Spinal Canal, Percutaneous Approach (ICD-10-PCS; 2021-09-15)
PROC: 10907ZC Drainage of Amniotic Fluid, Therapeutic from Products of Conception, Via Natural or Artificial Opening (ICD-10-PCS; 2021-09-15)
DX: O70.0 First degree perineal laceration during delivery (principal); Z37.0 Single live birth; Z3A.39 39 weeks gestation of pregnancy; O90.81 Anemia of the puerperium
CPT/HCPCS: 36415; 59025; 76819; 85014; 85018; 85027; 86592; 86850; 86900; 86901; 96360; 96361; 96374; G0378; J3490; J2300; J7120; U0003